=== PATIENT | female | born 1980 | race Caucasian/White ===

== ENCOUNTER 2017-05-24 11:01 | Day surgery (SDC) | payer OTHER ==
[~2017-05-24] VITALS: Ht 175.3 cm; Wt 82.4 kg
[2017-05-24] VITALS (8 sets, daily range): BP systolic 100–115; BP diastolic 58–79; PULSE 58–71; RESP 14–17; O2SAT 97–100
[~2017-05-24 11:01] MED LIST: MELO-259 PO; METH500T PO; OMEP40CA36 PO; RANI150C4 PO
[2017-05-24] MEDS ORDERED: Glycopyrrolate 0.2 MG/ML 1mL Inj ONE (11:02)
[2017-05-24] MEDS ORDERED: Ondansetron 2 mg/mL 2 mL Inj ONE (11:02)
[2017-05-24] MEDS ORDERED: Rocuronium 10 mg/mL 5 mL Inj ONE (11:02)
[2017-05-24] MEDS ORDERED: fentaNYL-PF 50 mCg/mL 2 mL Inj ONE (11:02)
[2017-05-24] MEDS ORDERED: Propofol 10,000 mCg/mL 20 mL Inj ONE (11:02)
[2017-05-24] MEDS ORDERED: HYDROmorphone 1 mg/mL Inj ONE (11:02)
[2017-05-24] MEDS ORDERED: Neostigmine 1 mg/mL 10 mL Inj ONE (11:02)
[2017-05-24] MEDS ORDERED: Dexamethasone 4 mg/mL Inj ONE (11:02)
[2017-05-24] MEDS: Lactated Ringer's 1,000 ML IV SCH ×2 (11:58→14:55)
[2017-05-24] MEDS ORDERED: CeFAZolin 2 Gm/50 mL D5W Duplex Bag IV ONE (12:04)
[2017-05-24 12:38] LABS: BASOPHILS % (AUTO) 0.5 % (0-3); MONOCYTES % (AUTO) 8.2 % (4-12); Mean Corpuscular Hemoglobin 30.1 pg (27.0-35.0); Mean Corpuscular Volume 90.9 fL (81-100); Platelet Count 262 bil/L (150-400)
[2017-05-24] MEDS ORDERED: Sodium Citrate-Citric Acid 15 mL Solution ONE (14:36)
[2017-05-24] MEDS ORDERED: Lactated Ringer's 1,000 ML IV SCH (14:53)
[2017-05-24] MEDS ORDERED: Lactated Ringer's 500 ML IV PRN (14:53)
--- NOTE | 2017-05-24 14:53 | PCM.HPANE ---
Patient Data Surgeon Admitting Provider: Attending Provider:Steven Woo MD Primary Care Physician:Nubia Andres MD Other Provider:Patti Gustafsoningham Anesthesia Reason for Visit Endometriosis Ht/WT & BMI Height (Feet): 5 Height (Inches): 9 Weight (Kilograms): 82.4 Body Mass Index 26.00 Allergies Coded Allergies: Sulfa (Sulfonamide Antibiotics) (Verified Allergy, Unknown, 05/24/17) sulfamethoxazole (Verified Allergy, Unknown, vomiting, 05/17/17) trimethoprim (Verified Allergy, Unknown, vomiting, 05/17/17) Uncoded Allergies: GLUTEN/DAIRY INTOL (Allergy, Unknown, 03/31/14) Past Anesthesia History Anesthesia History: Denies:: Abnormal Airway, Anesthesia Reactions, Difficult Intubation, Fam Anesthesia Reaction, Fam Malignant Hypertherm, Malignant Hyperthermia Diabetes History Hx Diabetes?: No MRSA MRSA: No Medications Hypertension Medication: No Home Meds Incl Beta Toya: No Reported Medications Methocarbamol (Robaxin)500 Mg [id number] Mg PO QID 05/17/17 Ranitidine 150 Mg Kixtmwf438 Mg PO BID Ref 0 05/17/17 Omeprazole 40 Mg Capsule.dr40 Mg PO BID Ref 0 05/17/17 Meloxicam 7.5 Mg Tablet7.5 Mg PO BID PRN For Pain 30 Days Ref 0 05/17/17 Discontinued Reported Medications [excedrin] No Conflict CheckUnknown Dose PRN migraines 08/13/15 Omeprazole 20 Mg Tablet.dr20 Mg PO BID Ref 0 08/13/15 Ranitidine 150 Mg Vihrtvr923 Mg PO DAILY Ref 0 08/13/15 History History of ENT Problems?: No HEENT History: Positive for:: Dysphagia (usually difficult pills ) Denies:: Abnormal Airway Cataracts Difficult Intubation Glaucoma Hearing Problem Sinus Problem TMJ Denture Type: None Teeth Condition: Within Normal Limits Hx of Heart Problems?: No Cardiovascular History: Denies:: AICD Abdominal Aortic Aneurism Atrial Fibrillation Cardiac Surgery Chest Pain Congestive Heart Failure Edema Heart Murmur Hypertension Irregular Heartbeat Pacemaker Hx of Respiratory Problem?: Yes Respiratory History: Positive for:: Asthma (exercise induced) Denies:: COPD Cough Emphysema Hemoptysis Oxygen Administration Pneumonia Tuberculosis Use of C-PAP Machine Hx Neurologic Problems?: Yes Neurological History: Positive for:: Headaches (every day to every other day) Denies:: CVA Dementia Multiple Sclerosis Parkinson's Disease Seizures Hx of GI Problems?: Yes Hx of Problems?: No Genitourinary History: Denies:: Kidney Stones Urinary Tract Infection Female Hx: Positive for:: Endometriosis (current admission problem) Problems with Breasts? (benign left breast lumpectomy) Denies:: Currently Skin History: Denies:: History Skin Disorders? Pressure Ulcers Hx Musculoskeletal Problems?: Yes Musculoskeletal History: Positive for:: Back Injury (back pain- chronic) Musculoskeletal Trauma (hx left cubital tunnel) Denies:: Fibromyalgia Joint Replacement Osteoarthritis (hip and knee pain) Hx of Psycho/Social Problems?: No Psycho Social History: Positive for:: Hx Depression (past hx not current ) Denies:: Anxiety Hx Surgeries?: Yes (left cubital tunnel, left salpingo-ooph, left breast bx) Hx Any Other Health Problems?: Yes Other History: Denies:: Cancer Thyroid Disease History Blood Transfusions: Positive for:: Accept Blood Products? Denies:: Blood Transfusions Hx Diabetes: No Hx Alcohol Use: NoHx Substance Use: No Smoking Status: Never Smoker Have You Smoked inLast 12 mo: No Stop/Bang P-Blood Pressure: treated: No B- Body Mass Index > 35 kg/m2: No A- Age over 50: No N- Neck Large Circumference: No G- Gender Male: No Risk Assessment Category Category 1A: Patient has history of documented sleep apnea, and HAS NOT received any narcotic, sedative or anesthesia administration during this stay. Category 1B: Patient has history of documented sleep apnea, and HAS received any narcotic , sedative or anesthesia administration during this stay Category 2: Patient has SUSPECTED Obstructive Sleep Apnea, and HAS received any narcotic , sedative or anesthesia administration during this stay. Category 3: Patient has SUSPECTED Obstructive Sleep Apnea and HAS NOT received narcotic, sedative or anesthesia administration during this stay. Category 4: Outpatient in Procedural Areas with known sleep apnea or who screen positive for High Risk via the STOP/BANG questionnaire. Exam Exam Vital Signs Vital Signs Date Time Temp Pulse Resp B/P Pulse Ox O2 Delivery O2 Flow Rate FiO2 05/24/17 11:31 36.8 62 16 102/68 97 Room Air General Appearance: Alert, Oriented X3, Cooperative, No Acute Distress HEENT/AIRWAY: MP 1 Lungs: Normal Air Movement Heart: Regular Rate/Rhythm Meds/Labs/Diagnostics Admission Meds Current Medications Lactated Ringer's (Lr) 1,000 ml @ 120 mls/hr Q8H20M IV Last administered on t 11:58; Start 05/24/17 at 05:00; Stop 05/24/17 at 13:19; Status DC Labs Test 05/24/17 11:55 05/24/17 12:35 Sodium Level 140mEq/L (134-144) Potassium Level 4.0mEq/L (3.5-5.2) Chloride Level 103mEq/L (97-108) Carbon Dioxide Level 24mmol/L (18-29) Blood Urea Nitrogen 16mg/dL (6-20) Creatinine 0.86mg/dL (0.57-1.00) Estimat Glomerular Filtration Rate 108mL/min (>59) Glucose Level 88mg/dL (60-99) Calcium Level 9.3mg/dL (8.5-10.1) White Blood Count 6.0th/mm3 (3.8-10.1) Red Blood Count 4.39mil/mm3 (3.90-5.20) Hemoglobin 13.2g/dL (12.0-15.6) Hematocrit 39.9% (35.0-46.0) Mean Corpuscular Volume 90.9fL (81-100) Mean Corpuscular Hemoglobin 30.1pg (27.0-35.0) Mean Corpuscular Hemoglobin Concent 33.1% (32.0-37.0) Red Cell Distribution Width 12.7% (12.3-15.4) Platelet Count 262bil/L (150-400) Neutrophils (%) (Auto) 56.0% (40-74) Lymphocytes (%) (Auto) 29.1% (14-46) Monocytes (%) (Auto) 8.2% (4-12) Eosinophils (%) (Auto) 6.0% (0-5) Basophils (%) (Auto) 0.5% (0-3) Plan Impression Patient chart reviewed, patient interviewed and anesthestic plan with risks, benefits, and alternatives discussed, and informed consent obtained. NPO per Anesth. Guidelines: Yes ASA Physical Status: ASA1 Normal Healthy Anesthetic Plan: GA Bene/Risks/Altern/Consents: Yes HP Complete Prior to Induction: Yes Eladio Fry MD May 24, 2017 14:53
[2017-05-24] MEDS ORDERED: Dexamethasone 4 mg/mL Inj IVPUSH PRN (14:55)
[2017-05-24] MEDS ORDERED: Phenylephrine 10,000 mCg/mL Inj IVPUSH PRN (14:55)
[2017-05-24] MEDS ORDERED: MetoCLOpramide 5 mg/mL 2 mL Inj IVPUSH PRN (14:55)
[2017-05-24] MEDS ORDERED: EPHEDrine Sulfate 50 mg/mL Inj IVPUSH PRN (14:55)
[2017-05-24] MEDS ORDERED: fentaNYL-PF 50 mCg/mL 2 mL Inj IVPUSH PRN (14:55)
[2017-05-24] MEDS ORDERED: HYDROmorphone 1 mg/mL Inj IVPUSH PRN (14:55)
[2017-05-24] MEDS ORDERED: Ondansetron 2 mg/mL 2 mL Inj IVPUSH PRN (14:55)
[2017-05-24] MEDS: CeFAZolin Inj 2 GM in IV Premix 1 EACH IV ONE ×2 (15:03→15:31)
[2017-05-24] MEDS ORDERED: Bupivacaine-MPF 0.5% 30 mL Inj INFILTRATE ONE (15:46)
--- NOTE | 2017-05-24 16:47 | CONS ---
[address] [address] CONSULTATION REPORT PATIENT: HAY WEBB : 1980 MR#: [id number] ADMIT: 05/24/2017 JOB ID: [id number] DATE OF SERVICE: 05/24/2017 CHIEF COMPLAINT AND IDENTIFICATION: I have been asked to perform a consultation by Dr. Woo on this 36-year-old woman in the operating room. HISTORY OF PRESENT ILLNESS: The patient presented for diagnostic laparoscopy for possible endometriosis. She has had a previous laparoscopy. Attempted open Christi access to the peritoneal cavity seems to have revealed periumbilical adhesions. I am asked to aid in obtaining access to the peritoneum for laparoscopy. The patient has no history of upper abdominal surgery. Her body mass index is roughly 30; therefore, after scrubbing in, I elected to obtain access with an optical trocar in the left upper quadrant. I made a small incision in the mid axillary line, just at the costal margin and then, using a 5 mm optical trocar and 0 degree 5 mm scope, I entered the abdomen, visualizing all layers of the abdominal wall including fat, anterior fascia, muscles, and what I believe were two layers of muscle, with an easy entry into the peritoneum. We insufflated and identified that we were in the peritoneal cavity without any adhesions in the left upper quadrant and with no intra-abdominal injury. As we visualized the lower abdomen, it became clear that the initial cut-down was extraperitoneal and that there were no anterior abdominal wall adhesions. Dr. Woo placed a trocar under laparoscopic vision through the periumbilical incision. We all noted an interesting finding of what appears to be thrombosis of the superficial epigastric veins visualized through the preperitoneal fat. At this point I scrubbed out and left Dr. Woo to perform the laparoscopic surgery as planned.
[2017-05-24] MEDS ORDERED: Acetaminophen IV 1,000 MG in IV Premix 1 EACH IV ONE (17:40)
--- NOTE | 2017-05-24 17:56 | PCM.DIGYN ---
Surgical Discharge Instruction Dates of Hospitalization Date of Hospital Admission Providers Admitting Physician: Primary Care Physician: Nubia Andres MD Attending Physician: Steven Woo MD Diagnosis at Time of Discharge Diagnosis at time of discharge Chronic pelvic pain Extensive peritoneal vascular congestion Peritoneal superficial changes and defects consistent with endometriosis ( peritoneal window) Post-operative diagnosis Chronic pelvic pain Extensive peritoneal vascular congestion Peritoneal superficial changes and defects consistent with endometriosis ( peritoneal window) Problems: Diet Discharge Diet: No restrictions Activity Discharge Activity-General: Try not to overdue, Balance rest and activity, No lifting >10 pounds for 4-6 weeks, No driving while taking narcotic Dressing and Incisional Care Dressing Care: Keep dressing clean, dry & intact, Allow Steri Stripes to fall off, Remove outer dressing after 24 hrs Hygiene: May shower (after 24 hours ), DO NOT soak incision under water, NO bathtub, hot tub or whirlpool Follow Up Plan Follow-up Provider (F9): Steven Woo MD Follow-up appointment: Weeks (two) Call your provider for: Fever, Chills, Shortness of breath, Vomitting, Drainage at incision, Heavy vaginal bleeding, Wound redness, Increasing pain, Other Steven Woo MD May 24, 2017 17:56
--- NOTE | 2017-05-24 17:56 | PCM.ANEP1 ---
Post Anesthesia PACU Phase 1 Assessment Vital Signs Vital Signs Date Time Temp Pulse Resp B/P Pulse Ox O2 Delivery O2 Flow Rate FiO2 05/24/17 17:45 71 17 112/63 97 Room Air 05/24/17 17:30 67 15 100/74 98 Room Air 05/24/17 17:25 65 17 101/60 99 Simple Mask 10 05/24/17 17:20 58 15 113/58 99 Simple Mask 10 05/24/17 17:15 37.1 59 14 108/79 99 Simple Mask 10 05/24/17 11:31 36.8 62 16 102/68 97 Room Air Anesthetic Administered: GA Level of Alertness: Sleepy, easy to arouse Pain: No Nausea or Vomiting: No CV Function & Hydration Stable: Yes Airway Device: none Lungs: Normal Air Movement PACU Phase 2 Assessment Complications: No Follow up Care: N/A Patient Instructions Provided: N/A Eladio Fry MD May 24, 2017 17:56
[2017-05-24] MEDS ORDERED: [UNRECOGNIZED DRUG - CODE] PO ×2 (18:02→18:03)
[2017-05-24] MEDS ORDERED: IBUP-1827 PO ×2 (18:02→18:03)
--- NOTE | 2017-05-24 19:26 | OP ---
[address] [address] OPERATIVE REPORT PATIENT: HAY WEBB : 1980 MR#: [id number] ADMIT: 05/24/2017 JOB ID: [id number] DATE OF SURGERY: 05/24/2017 PREOPERATIVE DIAGNOSIS(ES): Chronic pelvic pain. Possible endometriosis. POSTOPERATIVE DIAGNOSIS(ES): Extensive peritoneal vascular congestion, peritoneal superficial changes, and a defect (peritoneal windows) consistent with endometriosis. SURGEON: Steven Woo MD NAPPER TENDER: Gisella Mejia MD INTRAOPERATIVE CONSULT: Harley Price MD, general surgeon. PROCEDURE: Diagnostic laparoscopy. COMPLICATIONS: None. ESTIMATED BLOOD LOSS: 30 mL. IV FLUIDS: 500 mL crystalloid fluid. URINE OUTPUT: Bladder was straight cathed for 100 mL prior to the procedure. ANESTHESIA: General. FINDINGS: 1. Exam under anesthesia revealed a mobile, normal size uterus with good descent. Cervix visually normal. No palpable adnexal masses. 2. Laparoscopic finding: The uterus is mildly enlarged, with irregular shape, with overall globular appearance. Extensive vascular congestion of the peritoneum with thrombotic veins in the pelvic wall, in the anterior wall on the side chau. Right tube and ovary were surgically absent, with minimal adhesions normal. Left ovary with a simple functional cyst. The left fallopian tube appeared irregular and tortuous, but not dilated. Peritoneal defects (windows) were noted over the left and right uterosacral ligaments. Peritoneal surface with extensive vascular congestion and an increase in vascularity with superficial yellow staining and translucent blebs. The liver was grossly normal. Appendix is relatively enlarged, but no signs of inflammation. DESCRIPTION OF PROCEDURE: After informed consent was obtained, the patient was taken to the operation room. She was placed under general anesthesia. She was prepped and draped in the usual sterile fashion for abdominal and pelvic procedure. The patient was placed in dorsal lithotomy position. Exam under anesthesia revealed the findings as mentioned above. Then, a speculum was placed with good visualization of the cervix. The anterior lip of the cervix was grasped with a single-tooth tenaculum, then the Gwendolyn uterine manipulator was inserted and the single-tooth tenaculum was removed. The speculum was removed. Then, maintaining sterile technique, the Gwendolyn was covered with a blue towel. Then gloves were changed and attention was turned to the abdominal laparoscopic part of the procedure. An infraumbilical skin incision was made with a scalpel and the incision was extended with blunt dissection through the peritoneal fat. The fascia was grasped and was incised with scissors. Then the peritoneum was grasped and thought to be incised. Secondary to concern of what was thought to be a palpable adhesion, the general surgeon, Dr. Price, was consulted. He was able to initiate peritoneal access through a Hooper point access under direct visualization. See his part of the dictation for the details. Then, after confirming intraperitoneal access, pneumoperitoneum was obtained. Examination of the infraumbilical port site noted that the peritoneum was actually not entered yet, with no evidence of adhesion. A trocar was placed, size 11 mm, in the infraumbilical incision under direct visualization. Then an additional accessory trocar size 5 mm was inserted in the suprapubic area in the midline 3 cm above the symphysis pubis. The Hooper point trocar was a 5 mm trocar. Examination of the pelvic cavity was performed in a systematic manner as mentioned above. Extensive superficial endometriosis-like lesion was noted. Several intraoperative pictures were obtained. The bowel appeared to have a large amount of stool. At this point the procedure was complete. No biopsy was obtained secondary to the extensive vascularity throughout the peritoneal lining. Trocars were removed under direct visualization starting with the suprapubic trocar, then the infraumbilical trocar. Intra-abdominal pressure was decreased, with no evidence of any active bleeding. Then, the right upper quadrant trocar was removed. After deflating the abdomen of gas the patient was given two deep breaths. All instruments removed from the vagina. Monsel's was applied at the site of the tenaculum to control the bleeding. Bleeding was controlled. All instruments were removed. All instrument, needles and sponge counts were correct x2. The patient tolerated the procedure well and returned to the recovery room in stable condition.
== END 2017-05-24 23:59 | disposition home or self-care (01) ==
LOC: SAS 11:01
PROVIDERS: ATTEND Obstetrics & Gynecology
DX: N80.9 Endometriosis, unspecified (principal); J45.909 Unspecified asthma, uncomplicated; D64.9 Anemia, unspecified; F32.9 Major depressive disorder, single episode, unspecified
CPT/HCPCS: 36415; 49320; 80048; 85025; J0690; J1100; J1170; J1885; J2250; J2405; J2704; J2710; J3010; J7120